=== PATIENT | female | born 1945 | race Caucasian/White ===

== ENCOUNTER 2021-04-20 06:05 | Day surgery (SDC) | payer MEDICARE ==
[2021-04-18 13:22] LABS: EOSINOPHILS # (AUTO) 0.1 X10'3 (0-0.9); EOSINOPHILS % (AUTO) 3.2 % (0-6); HEMATOCRIT 39.5 % (35.0-45.0); HEMOGLOBIN 13.2 g/dl (12.0-16.0); LYMPHOCYTES % (AUTO) 21.7 % (21-51); MEAN CORPUSCULAR HEMOGLOBIN 33.3 PG (27.0-31.0); MEAN CORPUSCULAR HGB CONC 33.5 g/dL (33.0-36.5); MEAN CORPUSCULAR VOLUME 99.5 FL (78-98); MEAN PLATELET VOLUME 8.6 FL (7.4-10.4); MONOCYTES # (AUTO) 0.3 X10'3 (0-0.9); MONOCYTES % (AUTO) 7.6 % (2-12); NEUTROPHILS % (AUTO) 66.5 % (42-75); PLATELET COUNT 128 X10'3 (140-440); RED BLOOD COUNT 3.97 X10'6 (4.20-5.60); RED CELL DISTRIBUTION WIDTH 14.8 % (11.5-14.5); WHITE BLOOD COUNT 4.5 X10'3 (4.5-11.0)
[2021-04-18 13:34] LABS: ALBUMIN 2.8 G/DL (3.4-5.0); ANION GAP 9 (8-16); BLOOD UREA NITROGEN 43 MG/DL (7-18); BUN/CREATININE RATIO 28.3 (6.6-38.0); CALCIUM 8.3 MG/DL (8.5-10.1); CHLORIDE 106 MMOL/L (99-107); CREATININE 1.52 MG/DL (0.40-0.90); GLUCOSE 192 MG/DL (70-104); POTASSIUM 3.8 MMOL/L (3.5-5.1); SODIUM 143 MMOL/L (135-145); TOTAL CARBON DIOXIDE 28.3 MMOL/L (24-32); eGFR 33 ML/MIN
[2021-04-18 13:37] LABS: PARTIAL THROMBOPLASTIN TIME 27 SECONDS (22-32)
[~2021-04-20] VITALS: Ht 162.6 cm; Wt 139.1 kg
[2021-04-20] VITALS (11 sets, daily range): BP systolic 107–160; BP diastolic 53–74
[2021-04-20] MEDS ORDERED: sodium bicarbonate (8.4%) inj. 150 ML in dextrose 5%-water 1,000 ML IV ONE (06:30)
[2021-04-20] MEDS ORDERED: diphenhydrAMINE 25mg capsule PO PRN (06:30)
[2021-04-20] MEDS ORDERED: LORazepam 0.5 MG tablet PO PRN (06:30)
[2021-04-20] MEDS ORDERED: LIDOcaine/PRILOcaine 5gm cream TP ONE (06:40)
[2021-04-20] MEDS ORDERED: LANS15CA18 PO (06:53)
[2021-04-20] MEDS ORDERED: LISI10TA27 PO (06:53)
[2021-04-20] MEDS ORDERED: SERT-434 PO (06:53)
[2021-04-20] MEDS ORDERED: LIDO76.5 TOP (06:53)
[2021-04-20] MEDS ORDERED: ALBU90AE INH (06:53)
[2021-04-20] MEDS ORDERED: DOXE10CA2 PO (06:53)
[2021-04-20] MEDS ORDERED: FURO20TA4 PO (06:53)
[2021-04-20] MEDS ORDERED: LORA-268 PO (06:53)
[2021-04-20] MEDS ORDERED: POTA20PA31 PO (06:53)
[2021-04-20] MEDS ORDERED: ACET-1025 PO (06:53)
[2021-04-20] MEDS ORDERED: SIMV10TA98 PO (06:53)
[2021-04-20] MEDS ORDERED: FLUT1AER INH (06:53)
[2021-04-20] MEDS ORDERED: PROP10TA10 PO (06:53)
[2021-04-20] MEDS ORDERED: verapamil 2.5 mg/ml inj IV ONE (07:42)
[2021-04-20] MEDS ORDERED: heparin 1,000unit/ml 10ml vial 10 ML ONE (07:43)
[2021-04-20] MEDS ORDERED: nitroGLYCERIN-Tridil 50MG/D5W 250 ML IV ONE (07:43)
[2021-04-20] MEDS ORDERED: fentaNYL/PF 50MCG/1 ML 2ML syringe ONE (07:43)
[2021-04-20] MEDS ORDERED: midazolam 1 mg/ML 2ml injection ONE (07:43)
[2021-04-20] MEDS ORDERED: iohexol 350MG/ML 100ml bottle IV ONE (07:43)
[2021-04-20] MEDS ORDERED: LIDOcaine 1% (10mg/ml)w/preservative injection 20ml MDV ONE (07:43)
[2021-04-20] MEDS ORDERED: iohexol 350 MG/ML 50ML vial IV ONE (07:43)
[2021-04-20] MEDS ORDERED: acetylcysteine 200 MG/ml 4ml vial PO SCH (08:00)
[2021-04-20 08:37] LABS: ISTAT HGB ART 13.3 g/dl (12.0-16.0); ISTAT Hct ART 39 %PCV (35-48); ISTAT O2 SATURATION ARTERIAL 96 % (95-98); ISTAT SOURCE ART
[2021-04-20] MEDS ORDERED: normal saline 1000ml 1,000 ML IV SCH (10:20)
[2021-04-24 08:21] LABS: ISTAT Hct MIX 39 %PCV (35-48); ISTAT O2 SATURATION MIX VENOUS 68 % (60-80); ISTAT SOURCE CAP
== END 2021-04-20 16:20 | disposition home or self-care (01) ==
LOC: SSTAY O 06:05
PROVIDERS: ATTEND Internal Medicine Cardiovascular Disease
DX: R06.02 Shortness of breath (principal); R53.83 Other fatigue; I10 Essential (primary) hypertension; E78.5 Hyperlipidemia, unspecified; E66.9 Obesity, unspecified; Z68.43 Body mass index [BMI] 50.0-59.9, adult; G47.33 Obstructive sleep apnea (adult) (pediatric); F41.9 Anxiety disorder, unspecified; F32.9 Major depressive disorder, single episode, unspecified; Z79.899 Other long term (current) drug therapy; Z85.9 Personal history of malignant neoplasm, unspecified; Z90.710 Acquired absence of both cervix and uterus; Z90.49 Acquired absence of other specified parts of digestive tract; Z98.890 Other specified postprocedural states; Z88.1 Allergy status to other antibiotic agents; Z88.8 Allergy status to other drugs, medicaments and biological substances; Z81.8 Family history of other mental and behavioral disorders; Z80.0 Family history of malignant neoplasm of digestive organs; Z82.3 Family history of stroke; Z82.49 Family history of ischemic heart disease and other diseases of the circulatory system
CPT/HCPCS: 36415; 76937; 80048; 82803; 85014; 85025; 85610; 85730; 93005; 93460; 93567; 99152; 99153; C1769; C1894; J1644; J2001; J2250; J3010; Q0163; Q9967; A4620; A6258; C1751; J3490

== ENCOUNTER 2021-05-16 08:14 | Outpatient (CLI) | payer MEDICARE ==
[~2021-05-16 08:14] MED LIST: ACET-1025 PO; ALBU90AE INH; DOXE10CA2 PO; FLUT1AER INH; FURO20TA4 PO; LANS15CA18 PO; LIDO76.5 TOP; LISI10TA27 PO; LORA-268 PO; POTA20PA31 PO; PROP10TA10 PO; SERT-434 PO; SIMV10TA98 PO
[2021-05-16 09:13] LABS: BASOPHILS % (AUTO) 0.7 % (0-1); EOSINOPHILS # (AUTO) 0.2 X10'3 (0-0.9); EOSINOPHILS % (AUTO) 3.4 % (0-6); HEMATOCRIT 38.7 % (35.0-45.0); HEMOGLOBIN 13.1 g/dl (12.0-16.0); LYMPHOCYTES # (AUTO) 1.4 X10'3 (1.1-4.8); LYMPHOCYTES % (AUTO) 23.8 % (21-51); MEAN CORPUSCULAR HEMOGLOBIN 32.9 PG (27.0-31.0); MEAN CORPUSCULAR HGB CONC 33.8 g/dL (33.0-36.5); MEAN CORPUSCULAR VOLUME 97.3 FL (78-98); MEAN PLATELET VOLUME 9.1 FL (7.4-10.4); MONOCYTES # (AUTO) 0.6 X10'3 (0-0.9); MONOCYTES % (AUTO) 10.2 % (2-12); NEUTROPHILS # (AUTO) 3.6 X10'3 (1.8-7.7); NEUTROPHILS % (AUTO) 61.9 % (42-75); PLATELET COUNT 105 X10'3 (140-440); RED BLOOD COUNT 3.98 X10'6 (4.20-5.60); RED CELL DISTRIBUTION WIDTH 15.2 % (11.5-14.5); WHITE BLOOD COUNT 5.9 X10'3 (4.5-11.0)
[2021-05-16 09:18] LABS: ALANINE AMINOTRANSFERASE 19 U/L (12-78); ALBUMIN 2.9 G/DL (3.4-5.0); ALBUMIN/GLOBULIN RATIO 0.7 (1.1-1.5); ALKALINE PHOSPHATASE 91 IU/L (46-116); ANION GAP 8 (8-16); ASPARTATE AMINO TRANSFERASE 36 U/L (10-37); BLOOD UREA NITROGEN 36 MG/DL (7-18); BUN/CREATININE RATIO 27.1 (6.6-38.0); CALCIUM 8.4 MG/DL (8.5-10.1); CHLORIDE 108 MMOL/L (99-107); CREATININE 1.33 MG/DL (0.40-0.90); GLUCOSE 100 MG/DL (70-104); POTASSIUM 3.6 MMOL/L (3.5-5.1); SODIUM 143 MMOL/L (135-145); TOTAL CARBON DIOXIDE 27.5 MMOL/L (24-32); eGFR 39 ML/MIN
[2021-05-16 09:25] LABS: PARTIAL THROMBOPLASTIN TIME 27 SECONDS (22-32)
[2021-06-05] MEDS ORDERED: FLUT1AER INH (12:49)
[2021-06-09] MEDS ORDERED: NYSPWD TP (07:30)
== END 2021-05-16 23:59 | disposition home or self-care (01) ==
LOC: VAS 08:14
PROVIDERS: ATTEND Internal Medicine Cardiovascular Disease
DX: K74.60 Unspecified cirrhosis of liver (principal); I25.10 Atherosclerotic heart disease of native coronary artery without angina pectoris; I35.8 Other nonrheumatic aortic valve disorders; I65.23 Occlusion and stenosis of bilateral carotid arteries; J98.11 Atelectasis
CPT/HCPCS: 36415; 71046; 71275; 74174; 80053; 85025; 85610; 85730; 93880; Q9967

== ENCOUNTER → 2021-05-18 | Outpatient (CLI) | payer MEDICARE ==
[~2021-05-18] VITALS: Ht 162.6 cm; Wt 140.7 kg
[~2021-05-18] MED LIST changes: +IODIXANOL 320 MG/ML INFUS..BTL 100ML IV ONE; +IODIXANOL 320 MG/ML INFUS..BTL 50ML IV ONE; +NYSPWD TP
[2021-05-18 16:29] VITALS: BP 151/69
--- NOTE | 2021-05-18 16:31 | NUR ---
Patient and her were in the TAVR clinic today to consult with Dr. Bustillo. KCQ12 completed. Walk test attempted, patient unsteady and unable to complete the test. Vital signs measured. Patient education reviewed and questions answered.
== END | disposition home or self-care (01) ==
LOC: TAVR 13:04
PROVIDERS: ATTEND Internal Medicine Cardiovascular Disease
DX: I35.0 Nonrheumatic aortic (valve) stenosis (principal); R06.02 Shortness of breath; I65.29 Occlusion and stenosis of unspecified carotid artery
CPT/HCPCS: Q9967 ×2

== ENCOUNTER 2021-07-10 11:08 | Outpatient (CLI) | payer MEDICARE ==
[~2021-07-10 11:08] MED LIST changes: -IODIXANOL 320 MG/ML INFUS..BTL 100ML IV ONE; -IODIXANOL 320 MG/ML INFUS..BTL 50ML IV ONE; -LIDO76.5 TOP; -POTA20PA31 PO
== END 2021-07-10 23:59 | disposition home or self-care (01) ==
LOC: CARD DIAG 11:08
PROVIDERS: ATTEND Internal Medicine Cardiovascular Disease
DX: I34.0 Nonrheumatic mitral (valve) insufficiency (principal); Z95.2 Presence of prosthetic heart valve; Z48.812 Encounter for surgical aftercare following surgery on the circulatory system
CPT/HCPCS: 93005; 93306

== ENCOUNTER 2021-07-13 14:58 | Outpatient (CLI) | payer MEDICARE ==
--- NOTE | 2021-07-13 18:31 | NUR ---
Patient and spouse were seen today for TAVR follow-up with Dr. Bustillo and Dr. Moscoso. KCCQ12 completed. Vital signs measured. Echo and EKG reviewed with patient along with current condition of patients symptoms.
== END 2021-07-13 23:59 | disposition home or self-care (01) ==
LOC: TAVR 14:58
PROVIDERS: ATTEND Internal Medicine Cardiovascular Disease
DX: I49.8 Other specified cardiac arrhythmias (principal); R94.31 Abnormal electrocardiogram [ECG] [EKG]; Z95.2 Presence of prosthetic heart valve; Z48.812 Encounter for surgical aftercare following surgery on the circulatory system
CPT/HCPCS: 93005

== ENCOUNTER 2022-08-15 06:57 | Inpatient (IN) | payer MEDICARE ==
[~2022-08-15] VITALS: Ht 180.3 cm; Wt 102.0 kg
[~2022-08-15 06:57] MED LIST changes: +ACET325T58 PO; +ALBU2.5V13 NEB; +ATOR10TA70 PO; +BISA10SU62 RC; +BUME1TAB8 PO; +CALC500T11 PO; +CEPH-585 PO; +CHLO118L3 TOP; +CHOL1POW2 PO; +CLOP75TA33 PO; +CYAN-51 PO; +DICL20GE TOP; +DIPH50CA39 PO; +DOCU100C40 PO; +ESCI-8 PO; +FOLI1TAB27 PO; +LACT10SO57 PO; +LEVO75TA7 PO; +LIDO1ADH78 TOP; +LORA-269 PO; +MELA3TAB70 PO; +MIDO5TAB4 PO; +MOME13HF2 INH; +ONDA4TAB12 PO; +POLY17PO59 PO; +PRED20TA PO; +SENN-263 PO; +THIA50TA10 PO; +TRAM50TA2 PO; +VITA0.4T2 PO; +[UNRECOGNIZED DRUG - OTHER] TOP
--- NOTE | 2022-08-15 08:57 | NUR ---
attempt ekg, patient to ct. will attempt again.
[2022-08-15 09:05] LABS: ABG BASE EXCESS -2.5 mmol/L (-2.0-2.0); ABG HCO3 22.2 mmol/L (22.0-26.0); ABG OXYGEN SATURATION 93.9 % (94-97); ABG PCO2 (T) 37.6 mmHg (32.0-45.0); ABG PO2 (T) 76.8 mmHg (75.0-100.0); FCOHb 0.7 % (0.0-3.9); FLOW 3 L/min; FMetHb 0.3 % (0.0-1.5); TOTAL HEMOGLOBIN 9.4 G/dl (12.0-16.0)
[2022-08-15 09:15] LABS: BASOPHILS # (AUTO) 0.1 X10'3 (0-0.2); BASOPHILS % (AUTO) 0.5 % (0-1); EOSINOPHILS # (AUTO) 0.1 X10'3 (0-0.9); EOSINOPHILS % (AUTO) 0.5 % (0-6); HEMATOCRIT 25.8 % (35.0-45.0); HEMOGLOBIN 8.5 g/dl (12.0-16.0); LYMPHOCYTES # (AUTO) 0.7 X10'3 (1.1-4.8); LYMPHOCYTES % (AUTO) 4.4 % (21-51); MEAN CORPUSCULAR HEMOGLOBIN 35.1 PG (27.0-31.0); MEAN CORPUSCULAR HGB CONC 32.8 g/dL (33.0-36.5); MEAN CORPUSCULAR VOLUME 107.1 FL (78-98); MEAN PLATELET VOLUME 8.5 FL (7.4-10.4); MONOCYTES # (AUTO) 0.9 X10'3 (0-0.9); MONOCYTES % (AUTO) 5.2 % (2-12); NEUTROPHILS # (AUTO) 14.9 X10'3 (1.8-7.7); NEUTROPHILS % (AUTO) 89.4 % (42-75); PLATELET COUNT 104 X10'3 (140-440); RED BLOOD COUNT 2.41 X10'6 (4.20-5.60); WHITE BLOOD COUNT 16.6 X10'3 (4.5-11.0)
[2022-08-15 09:41] LABS: ALANINE AMINOTRANSFERASE 110 U/L (12-78); ALBUMIN 1.8 G/DL (3.4-5.0); ALBUMIN/GLOBULIN RATIO 0.5 (1.1-1.5); ALKALINE PHOSPHATASE 214 IU/L (46-116); ANION GAP 13 (8-16); ASPARTATE AMINO TRANSFERASE 293 U/L (10-37); BILIRUBIN,TOTAL 2.2 MG/DL (0.1-1.0); BLOOD UREA NITROGEN 28 MG/DL (7-18); BUN/CREATININE RATIO 7.1 (6.6-38.0); CALCIUM 8.5 MG/DL (8.5-10.1); CHLORIDE 100 MMOL/L (99-107); CREATININE 3.97 MG/DL (0.40-0.90); GLUCOSE 85 MG/DL (70-104); POTASSIUM 4.2 MMOL/L (3.5-5.1); SODIUM 136 MMOL/L (135-145); TOTAL CARBON DIOXIDE 23.1 MMOL/L (24-32); TOTAL PROTEIN 5.8 G/DL (6.4-8.2); eGFR 11 ML/MIN
[2022-08-15 09:45] LABS: MAGNESIUM 1.8 MG/DL (1.5-2.4); PHOSPHORUS 4.1 MG/DL (2.3-4.5)
[2022-08-15] MEDS ORDERED: normal saline 1000ml 1,000 ML IV ONE (10:00)
[2022-08-15] MEDS ORDERED: CefTRIAXone/D5W-Rocephin 1gm 50 ML IV ONE (10:00)
[2022-08-15 10:17] LABS: NUCLEATED RED BLOOD CELLS 2 /100WBC (0-0); TOTAL CELLS COUNTED 100
[2022-08-15 10:18] LABS: PLATELET ESTIMATE DECREASED
[2022-08-15 10:22] LABS: ANISOCYTOSIS 1+
[2022-08-15 10:23] LABS: HYPOCHROMASIA 2+; POLYCHROMASIA FEW
[2022-08-15 10:24] LABS: STOMATOCYTES 2+
[2022-08-15 10:25] LABS: TARGET CELLS FEW
--- NOTE | 2022-08-15 11:11 | NUR ---
SPOKE WITH NORMAN FROM [facility] [phone]. PT HAS DIALYSIS PORT LEFT UPPER CHEST. HAS BEEN RECEIVING CEPHALEXIN FOR UTI. WILL SEND LIST OF PTS MEDS. PT DOES NOT AMBULATE-BEDBOUND. PHYSICAL THERAPY HAS BEEN WORKING WITH HER ON AMBUATION. PT POST ALMA.
--- NOTE | 2022-08-15 11:16 | NUR ---
BRIAN CASTOR [phone]. PT IS A FULL CODE.
[2022-08-15] MEDS ORDERED: azithromycin/NS 500mg/250ml 250 ML IV ONE (11:55)
--- NOTE | 2022-08-15 12:00 | NUR ---
ATTEMPTED IV START X 3. NO SUCCESS.
--- NOTE | 2022-08-15 12:15 | NUR ---
INFORMED DR. PARK OF NO IV ACCESS.
--- NOTE | 2022-08-15 12:45 | NUR ---
DR. PARK PREPARING FOR CVP LINE TO RIGHT FEMORAL. DR. HARRISON AT BEDSIDE, STATED "HOLD OFF, WILL PUT CENTRAL LINE UP IN ICU.
[2022-08-15] MEDS ORDERED: acetaminophen 325mg tablet PO PRN ×2 (13:10)
[2022-08-15] MEDS: normal saline 1000ml 1,000 ML IV SCH (13:10)
[2022-08-15] MEDS ORDERED: magnesium hydroxide 30ml (MOM) UD suspension PO PRN (13:10)
[2022-08-15] MEDS ORDERED: ondansetron/PF 4mg/2ml inj IV PRN (13:10)
[2022-08-15] MEDS ORDERED: HYDROmorphone 1 mg/ml syringe IV ONE (14:05)
[2022-08-15] MEDS ORDERED: vancomycin/NS 1 GM ADD-VANTAGE 250 ML IV PRN (14:10)
[2022-08-15] MEDS ORDERED: vancomycin 1,750 MG in NS 350ml IV soln IV ONE (14:15)
[2022-08-15] MEDS ORDERED: HYDROmorphone inj. 0.5 MG/0.5 ML DISP.SYRIN IV PRN (14:25)
--- NOTE | 2022-08-15 14:25 | NUR ---
DR EAGLE SPOKE WITH PT'S POWER OF HAND PATTERN MARKER (BOY FRIEND) AND PT HAS BEEN PLACED ON CONFORT CARE WITHOUT CPR/INTUBATION. Ravindra LLANES RN AND YANE SANDHU MADE AWARE BY DR EAGLE. [employer] A[employer]LYST CALLED TO SEE IF THEY HAVE A BLANK COPY OF A POLST FOR PT'S POWER OF HAND PATTERN MARKER TO UPDATE.
--- NOTE | 2022-08-15 14:49 | NUR ---
DILAUDID GIVEN IM, NO IV ROUTE
--- NOTE | 2022-08-15 15:38 | NUR ---
pt sleeping quietly
[2022-08-15] MEDS ORDERED: hydrocortisone sod succ/PF 100mg/2ml inj. IV SCH (16:00)
[2022-08-15] MEDS ORDERED: cefepime 1GM/NS ADD-VANTAGE 100 ML IV SCH (16:00)
[2022-08-15] MEDS ORDERED: morphine 2 MG/ML inj. syringe IV PRN (16:15)
--- NOTE | 2022-08-15 17:26 | NUR ---
PT'S POWER OF APPRENTICE JOCKEY, JEAN PIERRE BOWLING, WAS CALLED TO OBTAIN PERMISSION TO GIVE STATUS INFORMATION TO PT'S GRANDDAUGHTER, MARIAM. PERMISSION WAS OBTAINED. GRAND DAUGHTER CALLED AND INFORMED THAT PT WAS COMFORTABLE AND IS ON COMFORT CARE. SHE PLANS ON COMING TO SEE PT SOMETIME IN THE NEXT 24HRS., COMING FROM [place] VIA TRAIN.
[2022-08-15] MEDS ORDERED: fludrocortisone acetate 0.1mg tablet PO SCH (20:00)
[2022-08-16] MEDS: morphine 2 MG/ML inj. syringe IV PRN (00:34)
--- NOTE | 2022-08-16 00:36 | NUR ---
PAIN MED GIVEN IM PER VO FROM
[2022-08-16 02:30] VITALS: BP 124/39
[2022-08-16] MEDS ORDERED: VANCOMYCIN LEVEL IV SCH (03:00)
--- NOTE | 2022-08-16 06:20 | NUR ---
Pt resting with eyes closed effortless respirations observed.
[2022-08-16] MEDS: normal saline 1000ml 1,000 ML IV SCH ×2 (06:30→16:25)
--- NOTE | 2022-08-16 06:58 | NUR ---
Wasted: Dilaudid 1mg IV and witnessed by Kelly Villarreal RN. Waste written on paper and faxed to pharmacy.
--- NOTE | 2022-08-16 08:04 | NUR ---
SPOKE WITH DR MELARA REGARDING PT'S PAIN MANAGEMENT. REQUESTED VERBAL ORDER TO CHANGE IV PAIN MEDICATION TO IM. DR MELARA STATES THAT SHE WILL CHANGE ORDER TO ROXENOL PO FOR PAIN AND THAT DILAUDID MAY BE GIVEN IM x2 UNTIL SHE CAN PUT THE NEW PAIN ORDER IN.
[2022-08-16] MEDS: HYDROmorphone 1 mg/ml syringe IV PRN ×3 (08:17→21:33)
--- NOTE | 2022-08-16 08:53 | NUR ---
Pts linen changed, skin cleaned and repositioned in bed.
[2022-08-16] MEDS ORDERED: morphine oral 20mg/ml (conc. morphine) 1ml oral syringe PO PRN (09:35)
--- NOTE | 2022-08-16 12:00 | NUR ---
Pt repositioned for comfort, pt asked if she needed something for pain and pt opens eyes and shook head no.
--- NOTE | 2022-08-16 21:49 | NUR ---
checked pt linens- no BM noted, nor urine output noted, sheets clean, dry. changed some linens where pt right arm edema was weaping, placed warm blankets, moistened pt mouth with swabs and placed chapstick on lips to prevent cracking. will continue to monitor.
--- NOTE | 2022-08-16 23:26 | NUR ---
pt remains asleep. Continue to monitor.
[2022-08-17] MEDS: normal saline 1000ml 1,000 ML IV SCH (06:02)
[2022-08-17] MEDS: morphine 2 MG/ML inj. syringe IV PRN (08:18)
--- NOTE | 2022-08-17 08:21 | NUR ---
PT MOANING APPEARS TO BE IN DISCOMFORT. MORPHINE 2MG IV GIVEN FOR DISTRESS
--- NOTE | 2022-08-17 09:50 | NUR ---
PER DR MELARA STOP ALL LABS AND ANY PT TX PT IS COMFORT CARE
--- NOTE | 2022-08-17 09:51 | NUR ---
PT RESTING COMFORTABLE
--- NOTE | 2022-08-17 11:35 | NUR ---
family at bs. pt appears comfortble at this time. notified family we will be moving pt upstairs shortly.
--- NOTE | 2022-08-17 12:30 | NUR ---
FAMILY STATES THAT [facility] IS TO BE CALLED THE MORTURARY
--- NOTE | 2022-08-17 15:07 | NUR ---
Noted pt has been made DNR w/ comfort care per EMR. Will continue to monitor. Rec: 1. bowel care per comfort measures Addendum: 08/17/22 at [address] Amended: Links added.
--- NOTE | 2022-08-17 17:35 | NUR ---
Patient today at 1350. Patient's respirations 3-4/min upon arrival from ER and passed peacefully. RETORT FIREMAN Tila called Domo CURTIS to let him know and salo wanted to come to the bedside before releasing the body. Belongings sent with salo Diaz. Waiting for Rob and Jadiel to picker operator the body, expecting them to arrive around 1900
== END 2022-08-17 13:50 | DRG 682 ==
LOC: ER 06:57 → ED HOLD 13:26 → MERGE 13:26 → PCU 3S 08-17 12:51
PROVIDERS: ADMIT Internal Medicine Critical Care Medicine; ATTEND Internal Medicine Critical Care Medicine
PROC: 5A1D70Z Performance of Urinary Filtration, Intermittent, Less than 6 Hours Per Day (ICD-10-PCS; principal; 2022-08-15)
DX: N17.9 Acute kidney failure, unspecified (principal); G92.9 Unspecified toxic encephalopathy; I13.2 Hypertensive heart and chronic kidney disease with heart failure and with stage 5 chronic kidney disease, or end stage renal disease; R18.8 Other ascites; K76.6 Portal hypertension; N39.0 Urinary tract infection, site not specified; E87.20 Acidosis, unspecified; N18.6 End stage renal disease; Z51.5 Encounter for palliative care; Z66 Do not resuscitate; G89.4 Chronic pain syndrome; D69.59 Other secondary thrombocytopenia; D73.1 Hypersplenism; E88.09 Other disorders of plasma-protein metabolism, not elsewhere classified; R74.01 Elevation of levels of liver transaminase levels; R62.7 Adult failure to thrive; I25.10 Atherosclerotic heart disease of native coronary artery without angina pectoris; I48.91 Unspecified atrial fibrillation; I50.9 Heart failure, unspecified; J44.9 Chronic obstructive pulmonary disease, unspecified; K74.60 Unspecified cirrhosis of liver; Z95.1 Presence of aortocoronary bypass graft; Z99.2 Dependence on renal dialysis; Z88.1 Allergy status to other antibiotic agents; Z88.5 Allergy status to narcotic agent; Z88.8 Allergy status to other drugs, medicaments and biological substances; Z79.899 Other long term (current) drug therapy; Z87.440 Personal history of urinary (tract) infections; Z68.31 Body mass index [BMI] 31.0-31.9, adult
CPT/HCPCS: 36415; 36600; 70450; 71045; 74176; 80053; 82803; 83605; 83735; 84100; 84145; 84484; 85007; 85018; 85025; 87040; 93005; 99285; A6258; A6402; A6446; G0378; J1170; J2270; J7030